=== PATIENT | female | born 1945 | race Caucasian/White ===

== ENCOUNTER → 2016-06-07 | Outpatient (CLI) | payer MEDICARE, OTHER ==
[~2016-06-07] MED LIST: ACET650T5 PO; ALEN70TA7 PO; ASCO500C15 PO; CALC1TAB3 PO; CELE-34 PO; FISH1CAP28 PO; LEVO100T83 PO; METH25PO21 MC; MULT1CAP47 PO; PRED2.5T4 PO
== END ==
LOC: WC.BC 07:58
DX: Z12.31 Encounter for screening mammogram for malignant neoplasm of breast (principal); N64.59 Other signs and symptoms in breast
CPT/HCPCS: 77063; G0202